=== PATIENT | female | born 1985 | race Caucasian/White ===

== ENCOUNTER 2017-07-05 11:42 | Emergency (ER) | payer MEDICAID ==
[~2017-07-05] VITALS: Ht 175.3 cm; Wt 68.0 kg
[~2017-07-05 11:42] MED LIST: APAP/HYDROCODON1 TA9 PO; KEFLEX 500MG.500 MG PO; MOTRIN 400MG.400 MG PO; NOMEDS XX; PERCOCET 5/3251 EACH PO; PRENATAL PLUS1 TA1 PO; TESSALON PERLE100 MG PO; TYLENOL WITH CO1 TA1 PO; Zofran4 MG PO
--- NOTE | 2017-07-05 12:34 | Urgent Treatment Center Report ---
History of Present Issue Date/Time Seen by Provider 07/05/17 1150 Visit Reason Pt arrived:Walked Presenting Problem:PT PRESENTS WITH RT SIDED FACE PAIN THAT BEGAN THIS AM WHEN SHE FIRST WOKE UP. UNABLE TO DESCRIBE THE TYPE OF PAIN. RECENT DENTIST VISIT HAD XRAYS WITH NO DENTAL PROBLEMS. Location if Accident: Onset of symptoms date/time:/ or onset unknown for:MEDICAL HX UNKNOWN Have you (or family members/close friends) recently traveled outside the [place]? N If Yes, where/when: Have you had exposure to infectious disease within the past month? TB? Other? Specify: c/o right neck and jaw pain starting this morning. Currently 8/10. Reports she woke up at 5am w/ infant. No pain then. Once baby back to sleep, pt fell back to sleep but in the recliner on her right side. "I have never slept in the recliner ". Woke up around 6am and recalls being on her right side. Didn't immediately notice pain but once she set up and moved neck, immediate pain right side of neck shooting into jaw. Tried to smoke but too painful "to take a draw". Described as constant aching but made worse by moving neck, talking, chewing, opening mouth too far. Since onset, pain has "somewhat improved" and now pt is able to open mouth a little further. Last saw dentist approx one month ago. normal xrays at that time. Denies any redness, swelling. No change vision or taste. Hasn't taken or tried anything for pain. Initially declined home medications to triage nurse and myself but according to med rec, suboxone filled 06/28. once directly questioned, pt reports she forgot to mention taking 2.5 suboxone daily. Source patient Exam Limitations no limitations ALLERGIES Coded Allergies: No Known Allergies (02/15/16) History Medical History General CAD? No Angina: No [place]: No Hypertension? No Hyperlipidemia? No CHF? No DVT? No PE? No COPD? No Asthma? No Anemia? No GERD? No Gastric ulcers? No GI Bleed? No Hernia? No Thyroid Problems? No Hypothyroidism? No CVA? No Seizures? No Diabetes? No Renal Insuffiency? No UTI? No Stones? No BPH? No GB Disease: No Nephritic Syndrome? No Asplenia? No Hepatitis? No Sickle Cell Disease? No Arthritis? No Migraines? No Cataracts? No Glaucoma? No MRSA? No HIV? No TB? No Anxiety? No Depression? No Cancer? No More? 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 denies: ear pain, ear discharge, nose pain, drooling/excessive saliva, nose discharge, nose congestion, epistaxis, mouth swelling, tongue swelling, dental caries, loose teeth, missing teeth, throat pain, throat swelling, other ( change hearing). Respiratory denies cough, denies shortness of breath Cardiovascular denies chest pain, denies palpitations Gastrointestinal denies no symptoms reported Musculoskeletal see HPI, denies back pain, muscle stiffness Skin denies change in color, denies lesions, denies lumps, denies rash Psychiatric/Neurological denies headache, denies numbness, denies tingling Physical Exam Vital Signs Vital Signs Date Time Temp Pulse Resp B/P Pulse O2 O2 Flow FiO2 Ox Delivery Rate 07/05 1254 97.9 106 18 145/104 98 07/05 1215 18 07/05 1152 97.9 106 18 169/105 98 General Appearance no apparent distress Eye Exam - bilateral eye normal exam Ear, Nose, Throat normal EACs, TMs, nares, pharynx, significantly tender right TMJ, no mandibular or maxillary tenderness, no temporal tenderness, benign teeth /oral cavity, no facial asymmetry Neck normal inspection, supple, tender lateral (right sternocleidomastoid ), limited neck ROM due to pain, worse w/ rotation to right and neck flexion Respiratory Status No: respiratory distress, productive cough, non productive cough. Lung Sounds anterior: lungs clear. posterior: lungs clear. bilateral: lungs clear. 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 No Results/Orders Current Medication Orders Sig/Simon Start time Last Medication Dose Route Stop Time Status Admin Orphenadrine Citrate 60 MG ONCE ONE 07/05 1245 DC 07/05 IM 07/05 1246 1246 Orphenadrine Citrate 0 .STK-MED ONE 07/05 1245 DC .ROUTE Ketorolac 60 MG ONCE ONE 07/05 1215 DC 07/05 Tromethamine IM 07/05 1216 1215 Ketorolac 0 .STK-MED ONE 07/05 1212 DC Tromethamine .ROUTE Ketorolac 0 .STK-MED ONE 07/05 121 DC Tromethamine .ROUTE Consult MD Physician Consult Consult/PCP ROSELIA Jernigan Time Called 1240 Reason Pt. Condition Comments Discussed HPI, exam, pt's concerns and current medication. Rvwd Differentials. Agrees w/ muscular. Suggest muscle relaxer & anti-inflammatories. Discussed ER MD's thoughts and POC w/ patient. Pt states + understanding and reports her is with her pushing the baby around the halls but that he would sign her out. Progress [facility] Progress Notes 1 Date 07/05/17 Time 1215 Comment Moist heating pad applied [facility] Progress Notes 2 Date 07/05/17 Time 1233 Comment Denies improvement in pain since heating pad and toradol. "I really feel as if something is wrong". Pt concerned about what friends have told her it could be, Ortega's Palsy or a stroke. Reassurred pt and walked through several differential diagnosis (TN, Ortega's Palcy, CVA, temporal arteritis, migraine, dental abscess, sinusitis) with her explaining symptoms/exam and how it is the same/different then hers. Pt felt reassurred but still concerned. [facility] Progress Notes 3 Date 07/05/17 Time 1248 Comment pt reports to nurse that she is "feeling better about things now that she talked to me" (talking about being reassurred by MANAGER CUSTOMER). [facility] Progress Notes 4 Date 07/05/17 Time 1300 Comment pain has improved. Discussed POC. pain 4/10 now "and feels like it keeps getting better". Departure Departure Time of Disposition 1300 Disposition DC Home or Self Care(routine) Clinical Impression Primary Impression: Neck muscle strain Qualifiers: Encounter type: initial encounter Qualified Code: S16.1XXA - Strain of muscle, fascia and tendon at neck level, initial encounter Secondary Impressions: Temporomandibular joint (TMJ) pain Qualifiers: Laterality: right Qualified Code: M26.621 - Arthralgia of right temporomandibular joint Condition STABLE Referrals Calos RICHARDSON,Nilton Brandt (Family) IMMEDIATELY for new or worsening symptoms OR no noticeable improvement over the next 24 hours. 911 for difficulty breathing Patient Instructions DI for Neck Pain, DI for Temporomandibular Disorder Additional Instructions * naproxen every 12 hours with meal as needed for pain/inflammation. * Remember you had a toradol shot, similiar anti-inflammatory in clinic. No additional anti-inflammatory for 6-8 hours. * No additional anti-inflammatories like motrin, aleve, advil with the above amount of naproxen. You CAN still take Tylenol every 4 hours as needed if you need something more for pain. * moist heat x15-20 mins 3-4 times a day to affected area * Muscle relaxer every 8 hours as needed for muscle spasms but remember, * Remember you had noraflex, a muscle relaxer, in clinic around 1245 and it WILL cause drowsiness, worse due to your suboxone. You can NOT take it and drive, operate machinary or care for small children. if your pain continues and you feel you need further muscle relaxers, you will need to see your PCP due to your suboxone you take daily. * Keep this area active. No movement leads to more stiffness. * Biofreeze over the counter as needed to neck/jaw. * Discussed continued elevated BP. Enc to monitor and seek treatment if remains >140/90 or if symptoms persist. Seek immediate medical treatment for headache, chest pain, vision changes Discharge Counseling Counseled pt/family regarding diagnosis, medications/RX, home care, follow up needs Prescriptions Current Visit Scripts NAPROXEN (NAPROSYN 500MG TAB) 500 MG PO BIDP PRN pain #14 TAB at 1304
--- NOTE | 2017-07-05 12:34 | Urgent Treatment Center Report ---
History of Present Issue Date/Time Seen by Provider 07/05/17 1150 Visit Reason Pt arrived:Walked Presenting Problem:PT PRESENTS WITH RT SIDED FACE PAIN THAT BEGAN THIS AM WHEN SHE FIRST WOKE UP. UNABLE TO DESCRIBE THE TYPE OF PAIN. RECENT DENTIST VISIT HAD XRAYS WITH NO DENTAL PROBLEMS. Location if Accident: Onset of symptoms date/time:/ or onset unknown for:MEDICAL HX UNKNOWN Have you (or family members/close friends) recently traveled outside the [place]? N If Yes, where/when: Have you had exposure to infectious disease within the past month? TB? Other? Specify: c/o right neck and jaw pain starting this morning. Currently 8/10. Reports she woke up at 5am w/ infant. No pain then. Once baby back to sleep, pt fell back to sleep but in the recliner on her right side. "I have never slept in the recliner ". Woke up around 6am and recalls being on her right side. Didn't immediately notice pain but once she set up and moved neck, immediate pain right side of neck shooting into jaw. Tried to smoke but too painful "to take a draw". Described as constant aching but made worse by moving neck, talking, chewing, opening mouth too far. Since onset, pain has "somewhat improved" and now pt is able to open mouth a little further. Last saw dentist approx one month ago. normal xrays at that time. Denies any redness, swelling. No change vision or taste. Hasn't taken or tried anything for pain. Initially declined home medications to triage nurse and myself but according to med rec, suboxone filled 06/28. once directly questioned, pt reports she forgot to mention taking 2.5 suboxone daily. Source patient Exam Limitations no limitations ALLERGIES Coded Allergies: No Known Allergies (02/15/16) History Medical History General CAD? No Angina: No [place]: No Hypertension? No Hyperlipidemia? No CHF? No DVT? No PE? No COPD? No Asthma? No Anemia? No GERD? No Gastric ulcers? No GI Bleed? No Hernia? No Thyroid Problems? No Hypothyroidism? No CVA? No Seizures? No Diabetes? No Renal Insuffiency? No UTI? No Stones? No BPH? No GB Disease: No Nephritic Syndrome? No Asplenia? No Hepatitis? No Sickle Cell Disease? No Arthritis? No Migraines? No Cataracts? No Glaucoma? No MRSA? No HIV? No TB? No Anxiety? No Depression? No Cancer? No More? 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 denies: ear pain, ear discharge, nose pain, drooling/excessive saliva, nose discharge, nose congestion, epistaxis, mouth swelling, tongue swelling, dental caries, loose teeth, missing teeth, throat pain, throat swelling, other ( change hearing). Respiratory denies cough, denies shortness of breath Cardiovascular denies chest pain, denies palpitations Gastrointestinal denies no symptoms reported Musculoskeletal see HPI, denies back pain, muscle stiffness Skin denies change in color, denies lesions, denies lumps, denies rash Psychiatric/Neurological denies headache, denies numbness, denies tingling Physical Exam Vital Signs Vital Signs Date Time Temp Pulse Resp B/P Pulse O2 O2 Flow FiO2 Ox Delivery Rate 07/05 1254 97.9 106 18 145/104 98 07/05 1215 18 07/05 1152 97.9 106 18 169/105 98 General Appearance no apparent distress Eye Exam - bilateral eye normal exam Ear, Nose, Throat normal EACs, TMs, nares, pharynx, significantly tender right TMJ, no mandibular or maxillary tenderness, no temporal tenderness, benign teeth /oral cavity, no facial asymmetry Neck normal inspection, supple, tender lateral (right sternocleidomastoid ), limited neck ROM due to pain, worse w/ rotation to right and neck flexion Respiratory Status No: respiratory distress, productive cough, non productive cough. Lung Sounds anterior: lungs clear. posterior: lungs clear. bilateral: lungs clear. 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 No Results/Orders Current Medication Orders Sig/Simon Start time Last Medication Dose Route Stop Time Status Admin Orphenadrine Citrate 60 MG ONCE ONE 07/05 1245 DC 07/05 IM 07/05 1246 1246 Orphenadrine Citrate 0 .STK-MED ONE 07/05 1245 DC .ROUTE Ketorolac 60 MG ONCE ONE 07/05 1215 DC 07/05 Tromethamine IM 07/05 1216 1215 Ketorolac 0 .STK-MED ONE 07/05 1212 DC Tromethamine .ROUTE Ketorolac 0 .STK-MED ONE 07/05 121 DC Tromethamine .ROUTE Consult MD Physician Consult Consult/PCP ROSELIA Jernigan Time Called 1240 Reason Pt. Condition Comments Discussed HPI, exam, pt's concerns and current medication. Rvwd Differentials. Agrees w/ muscular. Suggest muscle relaxer & anti-inflammatories. Discussed ER MD's thoughts and POC w/ patient. Pt states + understanding and reports her is with her pushing the baby around the halls but that he would sign her out. Progress [facility] Progress Notes 1 Date 07/05/17 Time 1215 Comment Moist heating pad applied [facility] Progress Notes 2 Date 07/05/17 Time 1233 Comment Denies improvement in pain since heating pad and toradol. "I really feel as if something is wrong". Pt concerned about what friends have told her it could be, Ortega's Palsy or a stroke. Reassurred pt and walked through several differential diagnosis ([place], Ortega's Palcy, CVA, temporal arteritis, migraine, dental abscess, sinusitis) with her explaining symptoms/exam and how it is the same/different then hers. Pt felt reassurred but still concerned. [facility] Progress Notes 3 Date 07/05/17 Time 1248 Comment pt reports to nurse that she is "feeling better about things now that she talked to me" (talking about being reassurred by SECURITY ADVISOR). [facility] Progress Notes 4 Date 07/05/17 Time 1300 Comment pain has improved. Discussed POC. pain 4/10 now "and feels like it keeps getting better". Departure Departure Time of Disposition 1300 Disposition DC Home or Self Care(routine) Clinical Impression Primary Impression: Neck muscle strain Qualifiers: Encounter type: initial encounter Qualified Code: S16.1XXA - Strain of muscle, fascia and tendon at neck level, initial encounter Secondary Impressions: Temporomandibular joint (TMJ) pain Qualifiers: Laterality: right Qualified Code: M26.621 - Arthralgia of right temporomandibular joint Condition STABLE Referrals Calos RICHARDSON,Nilton Brandt (Family) IMMEDIATELY for new or worsening symptoms OR no noticeable improvement over the next 24 hours. 911 for difficulty breathing Patient Instructions DI for Neck Pain, DI for Temporomandibular Disorder Additional Instructions * naproxen every 12 hours with meal as needed for pain/inflammation. * Remember you had a toradol shot, similiar anti-inflammatory in clinic. No additional anti-inflammatory for 6-8 hours. * No additional anti-inflammatories like motrin, aleve, advil with the above amount of naproxen. You CAN still take Tylenol every 4 hours as needed if you need something more for pain. * moist heat x15-20 mins 3-4 times a day to affected area * Muscle relaxer every 8 hours as needed for muscle spasms but remember, * Remember you had noraflex, a muscle relaxer, in clinic around 1245 and it WILL cause drowsiness, worse due to your suboxone. You can NOT take it and drive, operate machinary or care for small children. if your pain continues and you feel you need further muscle relaxers, you will need to see your PCP due to your suboxone you take daily. * Keep this area active. No movement leads to more stiffness. * Biofreeze over the counter as needed to neck/jaw. * Discussed continued elevated BP. Enc to monitor and seek treatment if remains >140/90 or if symptoms persist. Seek immediate medical treatment for headache, chest pain, vision changes Discharge Counseling Counseled pt/family regarding diagnosis, medications/RX, home care, follow up needs Prescriptions Current Visit Scripts NAPROXEN (NAPROSYN 500MG TAB) 500 MG PO BIDP PRN pain #14 TAB at 1304
[2017-07-05 12:54] VITALS: BP 145/104
[2017-07-05] MEDS ORDERED: NAPROSYN 500MG500 MG PO (13:00)
== END 2017-07-05 13:07 | disposition home or self-care (01) ==
LOC: UTC 11:42
DX: S16.1XXA Strain of muscle, fascia and tendon at neck level, initial encounter (principal); M26.621 Arthralgia of right temporomandibular joint; Z72.0 Tobacco use